=== PATIENT | female | born 1940 | race Caucasian/White ===

== ENCOUNTER 2017-05-05 08:45 | Emergency (ER) | payer OTHER ==
[~2017-05-05] VITALS: Ht 162.6 cm; Wt 73.9 kg
[~2017-05-05 08:45] MED LIST: AMOXICILLIN500 MG PO; CYCLOBENZAPRINE10 MG PO; GABAPENTIN300 MG PO; GLUCOSAMINE1000 MG PO; NEXIUM40 MG PO; PAIN RELIEF650 MG PO; PROCARDIA XL30 MG PO; ULTRAM50 MG PO
[2017-05-05] MEDS ORDERED: CLARITIN,ALAVAR10 MG PO (09:15)
[2017-05-05] MEDS ORDERED: COLCRYS0.6 MG PO (09:17)
[2017-05-05] MEDS ORDERED: NAPROSYN500 MG PO (09:18)
[2017-05-05] MEDS ORDERED: MIRALAX17 GM PO (09:18)
[2017-05-05] MEDS ORDERED: ZOMIG2.5 MG PO (09:20)
[2017-05-05 09:41] LABS: HEMATOCRIT 38.6 % (36.0-46.0); MCH 30.8 PG (29.0-34.0); MCHC 33.4 G/DL (30.0-36.0); MCV 92.1 FL (83-99); PLATELET COUNT 247 K/uL (156-360); RBC DIS.WIDTH-CV 13.9 % (11.8-14.6); RBC DIS.WIDTH-SD 46.5 % (39-53); RED BLOOD COUNT 4.19 M/uL (3.80-5.20); WHITE BLOOD COUNT 8.8 K/uL (4.1-10.2)
[2017-05-05 09:54] LABS: CHLORIDE 103 mEq/L (99-109); POTASSIUM 3.8 mEq/L (3.7-5.4); SODIUM 142 mEq/L (136-147)
[2017-05-05 09:55] LABS: GLUCOSE 96 mg/dL (70-99)
[2017-05-05 09:57] LABS: ANION GAP 11 MEQ/L (2-14)
[2017-05-05 09:59] LABS: GFR ESTIMATE (CALCULATED) > 59 mL/min/
[2017-05-05 10:00] LABS: UREA NITROGEN (BUN) 18 mg/dL (9-23)
[2017-05-05 10:16] LABS: ERTH.SED.RATE 36 MM/HR (0-30)
[2017-05-05 10:31] LABS: C-REACTIVE PROTEIN 14.4 MG/L (0-10); SAMPLE HEMOLYSIS CHECK 0; SAMPLE ICTERIC CHECK 0; SAMPLE LIPEMIA CHECK 0
[2017-05-05] MEDS ORDERED: PREDNISONE20 MG PO (11:44)
[2017-05-05 11:53] VITALS: BP 114/71
== END 2017-05-05 11:55 | disposition home or self-care (01) ==
LOC: EME 08:45
PROVIDERS: Nurse Practitioner Family
DX: M31.6 Other giant cell arteritis (principal); R51 Headache; Z87.891 Personal history of nicotine dependence
CPT/HCPCS: 70450; 80048; 85027; 85651; 86140; 99281; 99284; J1200; J2765; J7030; J7512